=== PATIENT | female | born 1935 ===

== ENCOUNTER 2018-08-23 09:44 | Day surgery (SDC) | payer MEDICARE, OTHER ==
[~2018-08-23] VITALS: Ht 157.5 cm; Wt 80.5 kg
[~2018-08-23 09:44] MED LIST: BUPIVACAINE/PF-EPI 0.5% 1:200K ONE; HEPARIN 1,000 UNITS/ML, 10ML ONE; PROTAMINE SULFATE 10 MG/ML, 5ML ONE; THROMBIN 5,000 UNIT VIAL TP ONE
[2018-08-23] MEDS ORDERED: SODIUM CHLORIDE 0.9% 1,000 ML IV SCH (10:11)
[2018-08-23 10:28] VITALS: BP 208/66
[2018-08-23] MEDS ORDERED: HYDR-3342 PO (10:39)
[2018-08-23] MEDS ORDERED: CARV3.122 PO (10:39)
[2018-08-23] MEDS ORDERED: FERR324T18 PO (10:39)
[2018-08-23] MEDS ORDERED: CHOL200074 PO (10:39)
[2018-08-23] MEDS ORDERED: ASPI-650 PO (10:39)
[2018-08-23] MEDS ORDERED: DOCU100C33 PO (10:39)
[2018-08-23] MEDS ORDERED: ACET325T14 PO (10:39)
[2018-08-23] MEDS ORDERED: GLIP2.5T16 PO (10:39)
[2018-08-23] MEDS ORDERED: LOSA100T14 PO (10:39)
[2018-08-23] MEDS ORDERED: AMLO-150 PO (10:39)
[2018-08-23] MEDS ORDERED: CLON0.2T PO (10:39)
[2018-08-23] MEDS ORDERED: FENTANYL PF 100 MCG/2ML ONE (10:48)
[2018-08-23] MEDS ORDERED: BUPIVACAINE/PF 0.5% ONE (11:21)
[2018-08-23] MEDS ORDERED: PHENYLEPHRINE 10 MG/ML ONE (11:25)
[2018-08-23] MEDS ORDERED: PROPOFOL 10 MG/ML, 20ML ONE (11:54)
[2018-08-23] MEDS ORDERED: DEXAMETHASONE 4 MG/ML, 1ML ONE (11:54)
[2018-08-23] MEDS ORDERED: CEFAZOLIN 1,000 MG ONE (11:54)
[2018-08-23] MEDS ORDERED: ONDANSETRON 2MG/ML, 2ML ONE (11:54)
[2018-08-23] MEDS ORDERED: OXYcodone 5 MG/5 ML ORAL.SOL UDC PO PRN (12:00)
[2018-08-23] MEDS ORDERED: PROMETHAZINE 25 MG/ML, 1ML IV PRN (12:00)
[2018-08-23] MEDS ORDERED: ALBUTEROL/IPRATROPIUM 2.5MG/0.5MG, 3 ML NPPB PRN (12:00)
[2018-08-23] MEDS ORDERED: ACETAMINOPHEN 325 MG TABLET PO PRN (12:00)
[2018-08-23] MEDS ORDERED: ONDANSETRON 2MG/ML, 2ML IV PRN (12:00)
[2018-08-23] MEDS ORDERED: METOPROLOL 1 MG/ML, 5ML IV PRN (12:00)
[2018-08-23] MEDS ORDERED: FENTANYL PF 100 MCG/2ML IV PRN (12:00)
[2018-08-23] MEDS ORDERED: HYDROmorphone 2 MG/ML, 1ML IVPush PRN (12:00)
[2018-08-23] MEDS ORDERED: MIDAZOLAM 1 MG/ML, 2ML IV PRN (12:00)
[2018-08-23] MEDS ORDERED: EPHEDRINE 50 MG/ML, 1ML ONE (12:00)
[2018-08-23] MEDS ORDERED: LABETALOL 5MG/ML, 20ML IV PRN (12:00)
[2018-08-23] MEDS ORDERED: hydrALAzine 20 MG/ML, 1ML ONE (12:38)
[2018-08-23] MEDS: hydrALAzine 20 MG/ML, 1ML IV PRN ×2 (12:40→13:06)
[2018-08-23] MEDS ORDERED: METOPROLOL 1 MG/ML, 5ML ONE (13:10)
[2018-08-23] MEDS ORDERED: OXYcodone 5 MG/5 ML ORAL.SOL UDC ONE (15:04)
== END 2018-08-23 17:50 | disposition home or self-care (01) ==
LOC: OUT 09:44
PROVIDERS: ATTEND Surgery Vascular Surgery
DX: T82.590A Other mechanical complication of surgically created arteriovenous fistula, initial encounter (principal); I12.0 Hypertensive chronic kidney disease with stage 5 chronic kidney disease or end stage renal disease; E11.22 Type 2 diabetes mellitus with diabetic chronic kidney disease; N18.6 End stage renal disease; Y83.8 Other surgical procedures as the cause of abnormal reaction of the patient, or of later complication, without mention of misadventure at the time of the procedure; Y92.89 Other specified places as the place of occurrence of the external cause
CPT/HCPCS: 36415; 36832; 80047; 93005; J0360; J0690; J1100; J1644; J2370; J2405; J2704; J2720; J3010; J7030; J3490